=== PATIENT | female | born 1970 ===

== ENCOUNTER 2018-05-02 16:28 | Emergency (ER) | payer OTHER ==
[2018-05-02 19:04] VITALS: RESP 18
[2018-05-02 19:16] LABS: BASO % 0.4 % (0.0-2.0); EOS # 0.1 K/uL (0.0-0.7); EOS % 0.7 % (0.0-4.0); HEMOGLOBIN 10.7 g/dL (12.0-16.0); LYMPH # 2.3 K/uL (1.0-4.3); LYMPH % 30.7 % (20.0-40.0); MEAN CELL VOLUME 79.7 fl (81.0-99.0); MEAN CORPUSCULAR HEMOGLOBIN 26.1 pg (27.0-31.0); MEAN CORPUSCULAR HGB CONC 32.8 g/dL (33.0-37.0); MEAN PLATELET VOLUME 8.4 fl (7.2-11.7); MONO # 0.4 K/uL (0.0-0.8); MONO % 5.2 % (0.0-10.0); NEUT # 4.7 K/uL (1.8-7.0); RBC 4.12 Mil/uL (3.80-5.20); RED CELL DISTRIBUTION WIDTH 16.6 % (11.5-14.5); WHITE BLOOD COUNT 7.5 K/uL (4.8-10.8)
[2018-05-02 19:36] LABS: ALB/GLOB RATIO 1.2 (1.0-2.1); ALBUMIN 3.9 g/dL (3.5-5.0); ALT/SGPT 37 U/L (9-52); AST/SGOT 36 U/L (14-36); BLOOD UREA NITROGEN 12 mg/dl (7-17); CALCIUM 8.7 mg/dL (8.4-10.2); GFR NON-AFRICAN AMERICAN > 60
--- NOTE | 2018-05-02 19:52 | ED PDOC ---
HPI: Chest Pain Time Seen by Provider: 05/02/18 17:53 Chief Complaint (Nursing): Chest Pain History Per: Patient Additional Complaint(s): Pt. states yesterday she developed L sided chest pain radiating to her L shoulder. Pain became worse this morning prompting her to go to the urgent care. States she was advised to come to ED for further evaluation. Also states she was given 4 chewable tabs of aspirin while in the clinic with moderate pain improvement but pain is still present. Of note, pt. states she was on a 14 hour flight from [place] and got back on 04/17/2018. Denies weakness, hemoptysis, OCP use, hemoptysis, fever, cough, hx of DVT or PE, leg pain. Movement of L shoulder worsens with movement. Past Medical History Reviewed: Historical Data, Nursing Documentation, Vital Signs Vital Signs: Last Vital Signs Temp 98.1 F 05/02/18 16:40 Pulse 84 05/02/18 19:56 Resp 18 05/02/18 19:03 BP 136/83 05/02/18 19:03 Pulse Ox 96 05/02/18 19:56 - Medical History PMH: Hyperlipidemia - Surgical History Surgical History: No Surg Hx - Family History Family History: States: No Known Family Hx Denies: Stroke, CT, CAD - Social History Current smoker - smoking cessation education provided: No Ex-Smoker (has not smoked in the last 12 months): No Drugs: Denies - Allergies Allergies/Adverse Reactions: Allergies Allergy/AdvReac Type Severity Reaction Status Date / Time shellfish derived Allergy ITCHING Verified 05/02/18 16:44 DEVIN Risk Score for UA/NSTEMI - DEVIN Risk Score Age > 64: NO 3 or more CAD Risk Factors: NO Known CAD (Stenosis greater than 50%): NO Aspirin use in past 7 days: NO Severe Angina: NO EKG ST changes greater than 0.5mm: NO Positive Cardiac Marker: NO DEVIN Score: 0 Risk %: 5% Wells Criteria for PE - Wells Criteria for Pulmonary Embolism Clinical Signs and Symptoms of DVT: No P.E is #1 Diagnosis, or Equally Likely: No Heart Rate >100: No Immobilization at least 3 days;Surgery previous 4 weeks: Yes Hemoptysis: No Malignancy w/treatment within 6 months, or palliative: No Total Score: 1.5 Review of Systems ROS Statement: Except As Marked, All Systems Reviewed And Found Negative Cardiovascular: Positive for: Chest Pain Physical Exam - Physical Exam Appears: Positive for: Well, Non-toxic, No Acute Distress Skin: Positive for: Normal Color, Warm. Negative for: Rash Eye Exam: Positive for: Normal appearance Cardiovascular/Chest: Positive for: Regular Rate, Rhythm. Negative for: Chest Non Tender (Moderate anterior L sided chest wall tenderness) Respiratory: Positive for: Normal Breath Sounds. Negative for: Respiratory Distress Pulses-Radial (L): 2+ Pulses-Radial (R): 2+ Gastrointestinal/Abdominal: Positive for: Soft. Negative for: Tenderness Back: Positive for: Normal Inspection, Muscle Spasm (moderate L sided trapezius muscle tenderness ) Extremity: Positive for: Other (Limited ROM of L shoulder secondary to pain; minimal L lateral shoulder tenderness without deformity) Neurologic/Psych: Positive for: Alert, Oriented (x3). Negative for: Aphasia, Facial Droop - Laboratory Results Result Diagrams: 05/02/18 19:00 05/02/18 19:00 Urine POC: Negative - ECG ECG: Positive for: Interpreted By Nm ECG Rhythm: Positive for: Sinus Rhythm. Negative for: ST/T Changes Rate: 84 O2 Sat by Pulse Oximetry: 96 - Radiology X-Ray: Interpreted by Nm X-Ray Interpretation: No Acute Disease - Progress ED Course And Treament: Labs, EKG, CXR ordered. Pt. placed on classroom monitor. Offered Morphine but pt. refused. Re-evaluation Time: 20:33 (Advised to f/u with Dr. Jarquin but is to return to ED immediately if symptoms worsen. Informed of all results. ) Condition: Re-examined, Improved Disposition - Clinical Impression Clinical Impression: Chest wall pain, Shoulder pain - Patient ED Disposition Is Patient to be Admitted: No - Disposition Referrals: Kristen Reynolds MD [Primary Care Provider] - [facility] [Outside] Disposition: Routine/Home Disposition Time: 20:36 Condition: IMPROVED Additional Instructions: MILAGRO MORRELL, thank you for letting us take care of you today. Your provider was Alphonse Belcher III, DO and you were treated for CHEST PAIN. The emergency medical care you received today was directed at your acute symptoms. If you were prescribed any medication, please fill it and take as directed. It may take several days for your symptoms to resolve. Return to the Emergency Department if your symptoms worsen, do not improve, or if you have any other problems. Please contact your doctor or call one of the physicians/clinics you have been referred to that are listed on the Patient Visit Information form that is included in your discharge packet. Bring any paperwork you were given at discharge with you along with any medications you are taking to your follow up visit. Our treatment cannot replace ongoing medical care by a primary care provider outside of the emergency department. Thank you for allowing the [facility] team to be part of your care today. If you had an X-Ray or CT scan: A Radiologist will review the ED reading if any change in treatment is needed we will contact you. If you had a blood, urine, or wound culture: It will take several days for the results, if any change in treatment is needed we will contact you. If you had an STI test: It will take 48 hours for the results. Please call after 1 week if you have not heard back. Instructions: Chest Pain That Is Not Caused by the Heart (DC), Shoulder Pain ( DC) Forms: [employer] (Indonesian) Print Language: NICARAGUAN
[2018-05-02 20:53] VITALS: BP 134/80; PULSE 80; TEMP 98.2; O2SAT 97
--- NOTE | 2018-05-03 07:55 | CARD ---
APPROVED REPORT Date of service: 05/02/2018 EKG Measurement Heart [id number] <Conclusion> Normal sinus rhythm Normal ECG
--- NOTE | 2018-05-03 10:56 | RAD ---
Date of service: 05/02/2018 HISTORY: L sided chest pain COMPARISON: No prior. TECHNIQUE: Chest PA and lateral FINDINGS: LUNGS: No active pulmonary disease. PLEURA: No significant pleural effusion identified. No pneumothorax apparent. CARDIOVASCULAR: Normal. OSSEOUS STRUCTURES: No significant abnormalities. VISUALIZED UPPER ABDOMEN: Normal. OTHER FINDINGS: None. IMPRESSION: No active disease.
== END 2018-05-02 20:50 | disposition home or self-care (01) ==
LOC: H.ER 16:28
DX: E07.9 Disorder of thyroid, unspecified (principal); M25.512 Pain in left shoulder; Z87.891 Personal history of nicotine dependence; E78.5 Hyperlipidemia, unspecified